=== PATIENT | male | born 1960 | race American Indian/Alaskan Native ===

== ENCOUNTER 2019-09-22 09:13 | Emergency (ER) | payer OTHER ==
[2019-09-22] MEDS ORDERED: methylPREDNISolone Sod Succinate 125 MG/2 ML INJ IV ONE (09:23)
[2019-09-22] MEDS ORDERED: diphenhydrAMINE 50 MG/ML VIAL IV ONE (09:23)
[2019-09-22] MEDS ORDERED: FAMOTIDINE 20 MG/2 ML INJ IV ONE (09:23)
--- NOTE | 2019-09-22 09:37 | Emergency Department Report ---
ED Allergic Reaction HPI - General Chief complaint: Allergic Reaction Stated complaint: ALLERGIC REACTION/LIPS SWELLING Time Seen by Provider: 09/22/19 09:22 Source: patient Mode of arrival: Ambulatory Limitations: No Limitations - History of Present Illness Initial Comments: Patient is 58-year-old male with history of hypertension and previous history of allergic reaction. Patient presented to the ER complaining of upper lip swelling for the last 3 days. Patient stated the symptoms started after he ate fish on Sunday. Patient stated that he had previous history of fish allergy however patient is on lisinopril for the last 5 years. Patient is currently denying any tongue swelling, difficulty breathing or difficulty swallowing. Patient also denied any shortness of breath. MD Complaint: allergic reaction, facial swelling -: days(s) (2) Exposure: food, medication Symptoms: lip swelling. denies: itching, difficulty breathing, orolingual swelling, hoarseness Severity: moderate Treatment Prior to Arrival: benadryl Previous Allergy History: prior ED visit(s) - Related Data Previous Rx's Medication Instructions Recorded Last Taken Type Famotidine [Pepcid] 40 mg PO QHS #5 tablet 09/22/19 Unknown Rx Prednisone [predniSONE 10 mg 10 mg PO .TAPER #1 tab.ds.pk 09/22/19 Unknown Rx (6-Day Pack, 21 Tabs)] amLODIPine [Norvasc] 5 mg PO DAILY #30 tab 09/22/19 Unknown Rx diphenhydrAMINE [Benadryl CAP] 25 mg PO Q8HR PRN #20 capsule 09/22/19 Unknown Rx Allergies Allergy/AdvReac Type Severity Reaction Status Date / Time shellfish derived Allergy Anaphylaxis Verified 09/22/19 09:17 ED Review of Systems ROS: Stated complaint: ALLERGIC REACTION/LIPS SWELLING Other details as noted in HPI Comment: All other systems reviewed and negative Constitutional: denies: chills, fever Respiratory: denies: cough, shortness of breath, SOB with exertion Cardiovascular: denies: chest pain, palpitations Gastrointestinal: denies: abdominal pain, nausea, vomiting Neurological: denies: headache, weakness ED Past Medical Hx - Medications Home Medications: Home Medications Medication Instructions Recorded Confirmed Last Taken Type Famotidine [Pepcid] 40 mg PO QHS #5 tablet 09/22/19 Unknown Rx Prednisone [predniSONE 10 mg 10 mg PO .TAPER #1 tab.ds.pk 09/22/19 Unknown Rx (6-Day Pack, 21 Tabs)] amLODIPine [Norvasc] 5 mg PO DAILY #30 tab 09/22/19 Unknown Rx diphenhydrAMINE [Benadryl CAP] 25 mg PO Q8HR PRN #20 capsule 09/22/19 Unknown Rx ED Physical Exam - General Limitations: No Limitations General appearance: alert, in no apparent distress - Head Head exam: Present: atraumatic, normocephalic, normal inspection - Eye Eye exam: Present: normal appearance - ENT ENT exam: Present: normal orophraynx, mucous membranes moist, other (significant swelling to the upper lip.) - Neck Neck exam: Present: normal inspection, full ROM. Absent: tenderness, meningismus, lymphadenopathy, thyromegaly - Respiratory Respiratory exam: Present: normal lung sounds bilaterally - Cardiovascular Cardiovascular Exam: Present: regular rate, normal rhythm, normal heart sounds - GI/Abdominal GI/Abdominal exam: Present: soft, normal bowel sounds. Absent: distended, tenderness, guarding, rebound, rigid, organomegaly, mass, bruit, pulsatile mass, hernia - Extremities Exam Extremities exam: Present: normal inspection, full ROM, normal capillary refill. Absent: calf tenderness - Back Exam Back exam: Present: normal inspection, full ROM. Absent: CVA tenderness (R), CVA tenderness (L) - Neurological Exam Neurological exam: Present: alert, oriented X3, CN II-XII intact, normal gait, reflexes normal. Absent: motor sensory deficit - Psychiatric Psychiatric exam: Present: normal mood - Skin Skin exam: Present: warm, intact, normal color ED Course Vital Signs 09/22/19 11:06 Temperature 98.2 F Pulse Rate 69 Respiratory 17 Rate Blood Pressure 152/100 Blood Pressure 152/100 [Right] O2 Sat by Pulse 100 Oximetry ED Medical Decision Making - Lab Data Result diagrams: 09/22/19 09:32 09/22/19 09:32 - Medical Decision Making Patient is 58-year-old male with history of hypertension and previous history of allergic reaction. Patient presented to the ER complaining of upper lip swel ling for the last 3 days. Patient stated the symptoms started after he ate fish on Sunday. Patient stated that he had previous history of fish allergy however patient is on lisinopril for the last 5 years. Patient is currently denying any tongue swelling, difficulty breathing or difficulty swallowing. Patient also denied any shortness of breath. Patient received Benadryl, Solu-Medrol, Pepcid. Patient is stated that he is feeling better and he feel his lip swelling is improving now. Labs reviewed and is unremarkable. Patient advised to stop lisinopril and to avoid fish food. Patient given prescription for Benadryl, prednisone and Pepcid. I changed his lisinopril to and Norvasc and advised to follow up with his primary care physician in the next 2-3 days and to return to the ER if symptoms are not improved. Critical care attestation.: If time is entered above; I have spent that time in minutes in the direct care of this critically ill patient, excluding procedure time. ED Disposition Clinical Impression: Acute allergic reaction, Hypertension Disposition: TO HOME OR SELFCARE Is pt being admited?: No Condition: Stable Instructions: Allergies (ED), Hypertension (ED) Prescriptions: Famotidine [Pepcid] 40 mg PO QHS #5 tablet amLODIPine [Norvasc] 5 mg PO DAILY #30 tab diphenhydrAMINE [Benadryl CAP] 25 mg PO Q8HR PRN #20 capsule PRN Reason: Itching Prednisone [predniSONE 10 mg (6-Day Pack, 21 Tabs)] 10 mg PO .TAPER #1 tab.ds.pk Referrals: PRIMARY CARE, [Referring] - 3-5 Days Forms: Work/School Release Form(ED)
[2019-09-22 10:08] LABS: Basophils # (Auto) 0.1 K/mm3 (0.0-0.1); Basophils % (Auto) 1.1 % (0.0-1.8); Eosinophils # (Auto) 0.3 K/mm3 (0.0-0.4); Eosinophils % (Auto) 3.6 % (0.0-4.3); Hematocrit 39.7 % (35.5-45.6); Lymphocytes # (Auto) 2.7 K/mm3 (1.2-5.4); Lymphocytes % (Auto) 36.6 % (13.4-35.0); Mean Corpuscular HGB Conc 33 % (32-34); Mean Corpuscular Volume 83 fl (84-94); Monocytes # (Auto) 0.5 K/mm3 (0.0-0.8); Monocytes % (Auto) 7.2 % (0.0-7.3); Platelet Count 267 K/mm3 (140-440); Red Blood Count 4.79 M/mm3 (3.65-5.03); Red Cell Distribution Width 14.2 % (13.2-15.2)
[2019-09-22 10:28] LABS: BUN/Creatinine Ratio 16; Blood Urea Nitrogen 14 mg/dL (9-20); Calcium 9.1 mg/dL (8.4-10.2); Hemolysis Index 5
[2019-09-22 11:09] VITALS: BP 152/100
== END 2019-09-22 13:50 | disposition home or self-care (01) ==
LOC: ED 09:13
DX: T78.40XA Allergy, unspecified, initial encounter (principal); I10 Essential (primary) hypertension; Z79.899 Other long term (current) drug therapy; X58.XXXA Exposure to other specified factors, initial encounter; Y93.89 Activity, other specified; Y92.89 Other specified places as the place of occurrence of the external cause; Y99.8 Other external cause status
CPT/HCPCS: 36415; 80048; 85025; 96374; 96375; 99283; J1200; J2930